=== PATIENT | female | born 1985 | race African-American/Black ===

== ENCOUNTER 2020-03-20 19:33 | Emergency (ER) | payer MEDICAID, OTHER ==
[~2020-03-20] VITALS: Ht 175.3 cm; Wt 126.0 kg
[2020-03-20] MEDS ORDERED: FLUORESCEIN SODIUM 1MG/STRIP RIGHTEYE NR (20:15)
[2020-03-20] MEDS ORDERED: TETRACAINE 0.5% OPHTH DROPS 4ML RIGHTEYE NR (20:15)
[2020-03-20] MEDS ORDERED: TRAMADOL 50MG TABLET PO ONE (22:15)
[2020-03-20 22:28] VITALS: BP 135/72
== END 2020-03-20 22:51 | disposition home or self-care (01) ==
LOC: ER 19:33
DX: H01.003 Unspecified blepharitis right eye, unspecified eyelid (principal); Z87.19 Personal history of other diseases of the digestive system
CPT/HCPCS: 99283

== ENCOUNTER 2020-04-08 02:51 | Observation (INO) | payer MEDICAID ==
[~2020-04-08] VITALS: Ht 175.3 cm; Wt 125.6 kg
[2020-04-08] MEDS ORDERED: FERR325T6 PO (03:43)
[2020-04-08] MEDS ORDERED: PNV1TABL50 PO (03:43)
[2020-04-08 04:01] LABS: CLARITY URINE CLEAR (CLEAR); COLOR URINE YELLOW (YELLOW); KETONES URINE NEGATIVE (NEGATIVE); LEUKOCYTE ESTERASE URINE NEGATIVE (NEGATIVE); NITRITE URINE NEGATIVE (NEGATIVE); OCCULT BLOOD URINE NEGATIVE (NEGATIVE); PH URINE 5.5 (4.5-8.0); PROTEIN URINE NEGATIVE (NEGATIVE); SPECIFIC GRAVITY URINE 1.015 (1.005-1.030)
== END 2020-04-08 04:30 | disposition home or self-care (01) ==
LOC: 8 EST LDRP 02:51
PROVIDERS: ADMIT Obstetrics & Gynecology; ATTEND Obstetrics & Gynecology
DX: O26.893 Other specified pregnancy related conditions, third trimester (principal); Z3A.33 33 weeks gestation of pregnancy; R35.0 Frequency of micturition
CPT/HCPCS: 59025; 81003; G0378; 99281

== ENCOUNTER 2020-04-28 17:59 | Observation (INO) | payer MEDICAID ==
[~2020-04-28] VITALS: Ht 175.3 cm; Wt 125.6 kg
[~2020-04-28 17:59] MED LIST: FERR325T6 PO; PNV1TABL50 PO
== END 2020-04-28 21:29 | disposition home or self-care (01) ==
LOC: 8 EST LDRP 17:59
PROVIDERS: ADMIT Obstetrics & Gynecology; ATTEND Obstetrics & Gynecology
DX: O99.613 Diseases of the digestive system complicating pregnancy, third trimester (principal); K59.00 Constipation, unspecified; Z3A.36 36 weeks gestation of pregnancy
CPT/HCPCS: 59025; G0378; 99281

== ENCOUNTER 2021-02-03 10:39 | Emergency (ER) | payer MEDICAID ==
[~2021-02-03] VITALS: Ht 177.8 cm; Wt 107.0 kg
[2021-02-03] MEDS ORDERED: MORPHINE SULFATE 4 MG/ML CPJ (NOT FOR IM USE) IV ONE (11:15)
[2021-02-03 11:41] LABS: BASOPHILS % 0.5 % (0.0-2.0); EOSINOPHILS % 0.6 % (0.0-5.0); HEMATOCRIT. 34.3 % (36.0-48.0); HEMOGLOBIN. 11.9 g/dL (12.0-16.0); LYMPHOCYTES % 39.8 % (20.0-50.0); MEAN CORPUSCULAR HEMOGLOBIN 29.6 pg (28.0-32.0); MEAN CORPUSCULAR VOLUME 85.3 fL (81.0-99.0); MEAN PLATELET VOLUME 7.4 fl (7.4-10.4); MONOCYTES % 6.7 % (2.0-8.0); NEUTROPHILS % 52.4 % (40.0-76.0); PLATELET 280 x1000/uL (130-400); RED BLOOD CELL COUNT 4.02 mill/uL (4.2-5.4); RED CELL DISTRIBUTION WIDTH 14.7 % (11.6-14.6)
[2021-02-03 11:50] LABS: CHLORIDE 107 mEq/L (98-107)
[2021-02-03 11:53] LABS: ETHANOL BLOOD < 10 mg/dL
[2021-02-03 13:34] VITALS: BP 160/90
== END 2021-02-03 13:35 | disposition home or self-care (01) ==
LOC: ER 10:44
DX: R51.9 Headache, unspecified (principal); Z98.890 Other specified postprocedural states
CPT/HCPCS: 36415; 70450; 80053; 80320; 84443; 85025; 86850; 86900; 86901; 96374; 99284; J2270; G0480